=== PATIENT | female | born 1940 | race Caucasian/White ===

== ENCOUNTER 2016-02-25 10:35 | Day surgery (SDC) | payer MEDICARE ==
[~2016-02-25] VITALS: Ht 152.4 cm; Wt 77.1 kg
[2016-02-25] VITALS (7 sets, daily range): BP systolic 77–132; BP diastolic 42–66; PULSE 67–81; RESP 16–18; O2SAT 93–99
[~2016-02-25 10:35] MED LIST: 0.9% Sodium Chloride 1,000 ML IV SCH; ACET325T51 PO; ATOR20TA35 PO; CALC-975 PO; CHOL200047 PO; CITA20TA PO; COU5 PO; HUM100IN3 SUBQ; HYDR-4003 PO; INSU200I SQ; LOSA25TA21 PO; NPH,100V SQ; OMEG-38 PO; Sodium Chloride LOK Flush 10 mL Syringe IV PRN; TIMO10DR11 OP; fentaNYL-PF 50 mCg/mL 2 mL Inj IVPUSH PRN
--- NOTE | 2016-02-25 12:34 | ENDO ---
[address] [address] ENDOSCOPY PROCEDURE PATIENT: HAWA MELGAR : 1940 MR#: [id number] ADMIT: 02/25/2016 JOB ID: [id number] DATE OF SERVICE: 02/25/2016 PROCEDURE PERFORMED: Colonoscopy. INDICATIONS: The patient with a personal history of colon polys. ASA CLASSIFICATION: The patient's ASA classification is II. MALLAMPATI SCORE: Mallampati score was 2. MEDICATIONS: 1. Versed 5 mg. 2. Fentanyl 125 mcg. INSTRUMENT USED: [id number]-H180AL. PREPARATION QUALITY: Fair. PROCEDURE DETAILS: After informed consent was obtained, the patient was brought into the GI suite, where she was placed on oxygen via nasal cannula and monitored with continuous pulse oximeter, telemetry, and blood pressure monitoring. A time-out was performed. Then, she was placed in the left lateral decubitus position and medications were administered for sedation. Digital rectal exam was performed which was unremarkable. The colonoscope was then inserted into the rectum and advanced under direct visualization to the cecum, which was identified by the presence of the ileocecal valve and appendiceal orifice. Once the cecum was reached, the colonoscope was withdrawn back into the rectum, as the mucosa and lumen were examined. In the rectum, retroflexion was performed. Following retroflexion, remaining air in the rectum was suctioned, and procedure was completed. FINDINGS: 1. Scattered diverticula were seen extending from the transverse colon all the way to the sigmoid colon. 2. In the sigmoid colon, diverticulosis was more severe. Within several of the diverticula there were balls of stool. 3. Retroflexed views in the rectum were unremarkable. IMPRESSION: Diverticulosis involving the transverse and descending colon. Otherwise normal exam from rectum to cecum. RECOMMENDATIONS: Repeat colonoscopy in five years, sooner if symptoms should dictate. COMPLICATIONS: None. ESTIMATED BLOOD LOSS: Zero.
== END 2016-02-25 23:59 | disposition home or self-care (01) ==
LOC: END 10:35
PROVIDERS: ATTEND Internal Medicine Gastroenterology
DX: Z12.11 Encounter for screening for malignant neoplasm of colon (principal); K57.30 Diverticulosis of large intestine without perforation or abscess without bleeding; E11.9 Type 2 diabetes mellitus without complications; Z86.010 Personal history of colon polyps; Z79.4 Long term (current) use of insulin; Z79.01 Long term (current) use of anticoagulants; Z79.899 Other long term (current) drug therapy
CPT/HCPCS: G0105; J2250; J7030